=== PATIENT | male | born 1935 | race Caucasian/White ===

== ENCOUNTER 2017-05-14 09:06 | Day surgery (SDC) | payer MEDICARE, OTHER ==
[~2017-05-14 09:06] MED LIST: ASPI-496 PO; LEVO112C2 PO
[2017-05-14] MEDS ORDERED: LIDOCAINE/PF 1%-EPI 1:200K, 30 ML ONE (09:39)
== END 2017-05-14 10:05 | disposition home or self-care (01) ==
LOC: CACL 09:06
PROVIDERS: ATTEND Internal Medicine Cardiovascular Disease
DX: I47.1 Supraventricular tachycardia (principal); R55 Syncope and collapse; I10 Essential (primary) hypertension; E78.5 Hyperlipidemia, unspecified; E11.9 Type 2 diabetes mellitus without complications; Z87.891 Personal history of nicotine dependence; Z79.82 Long term (current) use of aspirin
CPT/HCPCS: 33282; C1764; J3490

== ENCOUNTER → 2019-01-01 | Outpatient (CLI) | payer MEDICARE, OTHER | END | disposition home or self-care (01) | LOC: CFH 13:49 | PROVIDERS: ATTEND Internal Medicine Cardiovascular Disease | DX: I08.3 Combined rheumatic disorders of mitral, aortic and tricuspid valves (principal); E78.5 Hyperlipidemia, unspecified; I48.91 Unspecified atrial fibrillation; Z85.46 Personal history of malignant neoplasm of prostate | CPT/HCPCS: 93306 ==

== ENCOUNTER 2019-02-18 05:31 | Emergency (ER) | payer MEDICARE, OTHER ==
[~2019-02-18] VITALS: Ht 188 cm; Wt 87.0 kg
[2019-02-18] MEDS ORDERED: LEVO88TA4 PO (05:40)
[2019-02-18] MEDS ORDERED: APIX5TAB PO (05:41)
--- NOTE | 2019-02-18 05:53 | NUR ---
PT BIB [facility] FOR BLOOD IN URINE. PT STOPPED TAKING HIS ELIQUIS ON SATURDAY. VS STABLE. CALL LIGHT IN PLACE. WILL CONTINUE TO MONITOR.
[2019-02-18 05:59] LABS: MEAN CORPUSCULAR HEMOGLOBIN 32.3 pg (27.5-34.5); MEAN CORPUSCULAR HGB CONC 32.2 g/dL (33.2-36.2); MEAN CORPUSCULAR VOLUME 100.3 fL (81-97); MEAN PLATELET VOLUME 8.8 fL (7.4-10.4); PLATELET COUNT 246 x10^3/uL (130-400); RED BLOOD COUNT 4.86 x10^6/uL (4.38-5.82)
[2019-02-18] MEDS ORDERED: SODIUM CHLORIDE FLUSH 10ML SYR IVF ONE (06:00)
[2019-02-18 06:07] LABS: ALANINE AMINOTRANSFERASE 19 U/L (12-78); ALBUMIN 3.9 g/dL (3.4-5.0); ANION GAP 8 mmol/L (5-15); CALCIUM 9.2 mg/dL (8.5-10.1); CHLORIDE 114 mmol/L (98-107)
--- NOTE | 2019-02-18 06:08 | NUR ---
PT WENT TO CT
[2019-02-18 06:11] LABS: ALKALINE PHOSPHATASE 51 U/L (45-117); BILIRUBIN,TOTAL 0.6 mg/dL (0.2-1.0); TOTAL PROTEIN 6.5 g/dL (6.4-8.2); TROPONIN I < 0.015 ng/mL (0.000-0.045)
[2019-02-18 06:19] LABS: MICROSCOPIC INDICATED
--- NOTE | 2019-02-18 06:28 | NUR ---
DR AVILEZ IN ROOM
[2019-02-18 06:33] VITALS: BP 131/78
[2019-02-18 06:35] LABS: CULTURE INDICATED? NO
[2019-02-18 06:44] LABS: MD YES
[2019-02-18 06:51] LABS: <PLATELET ESTIMATE> ADEQUATE; <PLT MORPHOLOGY> NORMAL PLT MORPH; <RBC MORPHOLOGY> NORMAL; BAND#(MANUAL) 0.11 x10^3/uL; BANDS%(MANUAL) 1 % (0-7); BASOS#(MANUAL) 0.11 x10^3/uL (0-0.1); BASOS% (MANUAL) 1 % (0-1); EOS#(MANUAL) 0.64 x10^3/uL (0.0-0.4); EOS% (MANUAL) 6 % (1-7); LYMPH#(MANUAL) 4.35 x10^3/uL (1-3.4); LYMPHS% (MANUAL) 41 % (22-44); MONOS#(MANUAL) 0.85 x10^3/uL (0.3-2.7); MONOS% (MANUAL) 8 % (2-9); REACTIVE LYMPHS # (MANUAL) 0.42 x10^3/uL (0-0); REACTIVE LYMPHS % (MANUAL) 4 % (0-0); SEG#(MANUAL) 4.13 x10^3/uL (1.8-6.8); SEGS% (MANUAL) 39 % (42-75)
--- NOTE | 2019-02-18 07:00 | NUR ---
REPORT GIVEN TO JENNIFER ATKINSON
== END 2019-02-18 07:27 | disposition home or self-care (01) ==
LOC: ED 05:47
DX: R31.0 Gross hematuria (principal); R53.1 Weakness; I48.91 Unspecified atrial fibrillation; R51 Headache
CPT/HCPCS: 36415; 70450; 71045; 80053; 81001; 84484; 85025; 93005; 99284

== ENCOUNTER 2019-02-26 10:02 | Inpatient (IN) | payer MEDICARE, OTHER ==
[~2019-02-26] VITALS: Ht 188 cm; Wt 87.3 kg
[2019-02-27 13:13] VITALS: BP 129/79
== END 2019-02-27 15:28 | disposition home or self-care (01) | DRG 74 ==
LOC: ED 12:42 → EDIP 13:51 → 5SO 15:03 → DCLOUNGE 02-27 15:20
PROVIDERS: ADMIT Family Medicine; ATTEND Family Medicine
DX: G90.8 Other disorders of autonomic nervous system (principal); I48.0 Paroxysmal atrial fibrillation; I25.10 Atherosclerotic heart disease of native coronary artery without angina pectoris; R31.9 Hematuria, unspecified; F17.200 Nicotine dependence, unspecified, uncomplicated; N28.1 Cyst of kidney, acquired; I10 Essential (primary) hypertension; E78.5 Hyperlipidemia, unspecified; E03.9 Hypothyroidism, unspecified; Z85.72 Personal history of non-Hodgkin lymphomas; Z79.01 Long term (current) use of anticoagulants; Z85.46 Personal history of malignant neoplasm of prostate; Z90.81 Acquired absence of spleen; Z92.3 Personal history of irradiation; Z88.8 Allergy status to other drugs, medicaments and biological substances
CPT/HCPCS: 36415; 71045; 71275; 78452; 80048; 80053; 83880; 84439; 84443; 84484; 85025; 85610; 85730; 93005; 93017; 99285; G0378; J2785; A9502; J7040

== ENCOUNTER → 2020-04-25 | Outpatient (CLI) | payer MEDICARE, OTHER ==
[~2020-04-25] MED LIST changes: +APIX5TAB PO; +LEVO88TA4 PO; +METO25TA91 PO; +METOPROLOL
== END | disposition home or self-care (01) ==
LOC: CVU 07:56
PROVIDERS: ATTEND Internal Medicine Cardiovascular Disease
DX: I87.2 Venous insufficiency (chronic) (peripheral) (principal)
CPT/HCPCS: 93970

== ENCOUNTER → 2021-03-08 | Outpatient (CLI) | payer MEDICARE, OTHER | END | disposition home or self-care (01) | LOC: CFH 08:37 | PROVIDERS: ATTEND Internal Medicine Cardiovascular Disease | DX: I08.3 Combined rheumatic disorders of mitral, aortic and tricuspid valves (principal); I11.9 Hypertensive heart disease without heart failure; E78.5 Hyperlipidemia, unspecified; I48.91 Unspecified atrial fibrillation | CPT/HCPCS: 93306 ==

== ENCOUNTER 2021-03-14 06:45 | Observation (INO) | payer MEDICARE, OTHER ==
[~2021-03-14] VITALS: Ht 188 cm; Wt 87.5 kg
[2021-03-14] MEDS ORDERED: SODIUM CHLORIDE FLUSH 10ML SYR IVF ONE (07:00)
--- NOTE | 2021-03-14 07:11 | NUR ---
assuming care of pt after bedside report . pt resting in bed. vss. torres.
[2021-03-14 07:24] LABS: BASOPHILS % (AUTO) 1 % (0-1); EOSINOPHILS % (AUTO) 2 % (1-7); LYMPHOCYTES % (AUTO) 31 % (22-44); MEAN CORPUSCULAR HEMOGLOBIN 32.8 pg (27.5-34.5); MEAN CORPUSCULAR HGB CONC 33.8 g/dL (33.2-36.2); MEAN PLATELET VOLUME 8.7 fL (7.4-10.4); MONOCYTES % (AUTO) 16 % (2-9); NEUTROPHILS % (AUTO) 50 % (42-75); PLATELET COUNT 282 x10^3/uL (130-400); RED BLOOD COUNT 4.97 x10^6/uL (4.38-5.82); RED CELL DISTRIBUTION WIDTH 14.4 % (9.4-14.8)
[2021-03-14 07:32] LABS: ALANINE AMINOTRANSFERASE 24 U/L (12-78); ALBUMIN 3.5 g/dL (3.4-5.0); ANION GAP 6 mmol/L (5-15); CALCIUM 8.6 mg/dL (8.5-10.1); CHLORIDE 111 mmol/L (98-107); CREATININE 1.45 mg/dL (0.7-1.3)
[2021-03-14 07:36] LABS: ALKALINE PHOSPHATASE 59 U/L (45-117); BILIRUBIN,TOTAL 0.7 mg/dL (0.2-1.0); TOTAL PROTEIN 6.6 g/dL (6.4-8.2); TROPONIN I < 0.015 ng/mL (0.000-0.045)
[2021-03-14 07:44] LABS: ECHINOCYTES 1+; OVALOCYTES 1+
[2021-03-14 07:47] LABS: <PLATELET ESTIMATE> ADEQUATE; <PLT MORPHOLOGY> NORMAL PLT MORPH
--- NOTE | 2021-03-14 08:51 | NUR ---
PT RESTING IN BED. VSS. NADN. UP FOR RECHECK.
[2021-03-14] MEDS ORDERED: SODIUM CHLORIDE 0.9% 1,000ML IVBOLUS ONE (09:30)
--- NOTE | 2021-03-14 09:32 | NUR ---
PT WITH BATHROOM WITH UNSTEADY GAIT WITH ASSISTANCE OF THIS RN AND CANE. PT BACK TO BED. VSSusan. KAMILA. TO BE ADMITTED.
--- NOTE | 2021-03-14 09:59 | NUR ---
REPORT TO RABIA RODRIGUEZ
[2021-03-14] MEDS ORDERED: MECLIZINE CHEWABLE 25 MG TAB ONE (12:19)
[2021-03-14] MEDS ORDERED: MECLIZINE CHEWABLE 25 MG TAB PO ONE (12:30)
--- NOTE | 2021-03-14 12:57 | NUR ---
DIET TRAY GIVEN. PT SITTING UP EATING.
--- NOTE | 2021-03-14 14:06 | NUR ---
pt resting comortably with eyes closed, vss per mar, will continue to monitor.
--- NOTE | 2021-03-14 15:20 | NUR ---
pt ambulated to bathroom. states dizzyness is better. pt stable. pt back in bed on monitor call light in reach. pt provided [facility] blanket .
--- NOTE | 2021-03-14 15:57 | NUR ---
Pt concerned about not getting home medications. Dr. Fraser called and updated. States he will be by soon.
[2021-03-14] MEDS ORDERED: ONDANSETRON ODT 4 MG PO PRN (17:00)
[2021-03-14] MEDS ORDERED: ONDANSETRON 2MG/ML, 2ML IVPush PRN (17:00)
--- NOTE | 2021-03-14 18:26 | NUR ---
report called to medical radio television announcer. all questions answered .
[2021-03-14] MEDS: APIXABAN 5 MG TABLET PO SCH (20:35)
[2021-03-14 20:37] VITALS: BP_SYST 125; BP_SYST 135; BP_SYST 150; BP_DIAS 74; BP_DIAS 80; BP_DIAS 86
[2021-03-15 00:42] VITALS: BP 138/80
[2021-03-15] MEDS ORDERED: LEVOTHYROXINE 88 MCG TABLET PO SCH (06:00)
[2021-03-15 06:37] LABS: MEAN CORPUSCULAR HEMOGLOBIN 33.1 pg (27.5-34.5); MEAN CORPUSCULAR HGB CONC 33.9 g/dL (33.2-36.2); MEAN PLATELET VOLUME 8.8 fL (7.4-10.4); PLATELET COUNT 266 x10^3/uL (130-400); RED BLOOD COUNT 4.81 x10^6/uL (4.38-5.82); RED CELL DISTRIBUTION WIDTH 14.7 % (9.4-14.8)
[2021-03-15 06:52] LABS: ANION GAP 7 mmol/L (5-15); CALCIUM 8.2 mg/dL (8.5-10.1); CHLORIDE 114 mmol/L (98-107); CREATININE 1.31 mg/dL (0.7-1.3)
[2021-03-15 07:01] LABS: EOS#(MANUAL) 0.38 x10^3/uL (0.0-0.4); EOS% (MANUAL) 4 % (1-7); LYMPH#(MANUAL) 1.34 x10^3/uL (1-3.4); LYMPHS% (MANUAL) 14 % (22-44); MONOS#(MANUAL) 1.73 x10^3/uL (0.3-2.7); MONOS% (MANUAL) 18 % (2-9); SEG#(MANUAL) 6.14 x10^3/uL (1.8-6.8); SEGS% (MANUAL) 64 % (42-75)
[2021-03-15 07:02] LABS: ANISOCYTOSIS 1+; ECHINOCYTES 1+; OVALOCYTES 1+
[2021-03-15 07:04] LABS: <PLATELET ESTIMATE> ADEQUATE; <PLT MORPHOLOGY> NORMAL PLT MORPH; HOWELL-JOLLY BODIES 1+
[2021-03-15 08:00] VITALS: BP_SYST 150; BP_DIAS 80; BP_DIAS 95
[2021-03-15] MEDS: APIXABAN 5 MG TABLET PO SCH (09:22)
[2021-03-15 14:00] VITALS: BP 144/89
== END 2021-03-15 18:46 | disposition home or self-care (01) ==
LOC: ED 07:27 → INTOOBSV 11:54 → EDIP 11:54 → SUATTDRO 13:26 → 4WST 19:30
PROVIDERS: ADMIT Internal Medicine; ATTEND Family Medicine
DX: R55 Syncope and collapse (principal); R00.1 Bradycardia, unspecified; R42 Dizziness and giddiness; I48.0 Paroxysmal atrial fibrillation; E03.9 Hypothyroidism, unspecified; I10 Essential (primary) hypertension; E78.5 Hyperlipidemia, unspecified; N28.9 Disorder of kidney and ureter, unspecified; I25.10 Atherosclerotic heart disease of native coronary artery without angina pectoris; J44.9 Chronic obstructive pulmonary disease, unspecified; Z85.72 Personal history of non-Hodgkin lymphomas; Z79.899 Other long term (current) drug therapy; Z85.46 Personal history of malignant neoplasm of prostate; Z23 Encounter for immunization; Z79.01 Long term (current) use of anticoagulants
CPT/HCPCS: 36415; 71045; 80048; 80053; 83735; 84484; 85025; 93005; 93880; 99285; G0378; J7030

== ENCOUNTER 2021-03-22 06:53 | Day surgery (SDC) | payer MEDICARE, OTHER ==
[~2021-03-22] VITALS: Ht 188 cm; Wt 86.8 kg
[2021-03-22] MEDS ORDERED: LIDOCAINE 2%, 20ML ONE (07:58)
== END 2021-03-22 09:35 | disposition home or self-care (01) ==
LOC: CACL 06:53
PROVIDERS: ATTEND Internal Medicine Cardiovascular Disease
DX: I48.91 Unspecified atrial fibrillation (principal); I25.10 Atherosclerotic heart disease of native coronary artery without angina pectoris; I45.10 Unspecified right bundle-branch block; I10 Essential (primary) hypertension; E78.5 Hyperlipidemia, unspecified; E03.9 Hypothyroidism, unspecified; E66.3 Overweight; Z68.25 Body mass index [BMI] 25.0-25.9, adult; Z79.01 Long term (current) use of anticoagulants; Z79.899 Other long term (current) drug therapy; Z91.048 Other nonmedicinal substance allergy status; Z98.890 Other specified postprocedural states
CPT/HCPCS: 33285; C1764